=== PATIENT | male | born 1990 | race Caucasian/White ===

== ENCOUNTER 2016-04-20 01:41 | Emergency (ER) | payer BC, OTHER ==
[~2016-04-20] VITALS: Ht 172.7 cm; Wt 68.2 kg
[~2016-04-20 01:41] MED LIST: KLONOPIN 0.5MG0.5 MG; MOTRIN 800800 MG/TAB PO
[2016-04-20 01:44] VITALS: BP 125/81; TEMP 98.4
[2016-04-20] MEDS ORDERED: CELEXA10 MG PO (01:48)
[2016-04-20 03:44] VITALS: PULSE 75
== END 2016-04-20 03:45 | disposition home or self-care (01) ==
LOC: COL.ER 01:41
DX: S05.92XA Unspecified injury of left eye and orbit, initial encounter (principal); S05.02XA Injury of conjunctiva and corneal abrasion without foreign body, left eye, initial encounter; H21.562 Pupillary abnormality, left eye; H16.002 Unspecified corneal ulcer, left eye; W22.8XXA Striking against or struck by other objects, initial encounter